=== PATIENT | female | born 1985 | race Caucasian/White ===

== ENCOUNTER 2017-11-20 09:23 | Emergency (ER) | payer SELFPAY ==
[2017-11-20] MEDS ORDERED: NA CHLORIDE 0.9% 1,000 ML ONE ×2 (09:31→15:24)
[2017-11-20] MEDS ORDERED: ACT CHARCOAL/SORB 50 GM/240ML ONE (09:31)
[2017-11-20 10:05] LABS: Protime INR 1.01
[2017-11-20 10:10] LABS: Absolute Lymphocytes (CBC) 3.1 K/uL (0.7-4.9); Absolute Monocytes 0.7 K/uL (0.1-1.3); Absolute Neutrophil 2.9 K/uL (1.8-8.0); Basophils % 0.7 % (0-1.3); Eosinophils % 2.3 % (0-4.4); Hematocrit 37.9 % (36.0-45.0); Lymphocytes % 44.9 % (15.3-44.8); MCH 29.8 pg (27.0-35.0); MCV 86.7 fL (80-100); MPV 8.8 fL (7.6-11.3); Monocytes % 10.4 % (3.3-12.3); RBC Red Blood Cell Count 4.37 M/uL (3.86-4.86)
[2017-11-20 10:31] LABS: ALT/SGPT 13 U/L (12-78); AST/SGOT 10 U/L (15-37); Albumin 4.3 g/dL (3.4-5.0); Alkaline Phosphatase 44 U/L (45-117); BUN Blood Urea Nitrogen 16 mg/dL (7-18); Bicarbonate 22 mmol/L (21-32); Bilirubin Direct 0.2 mg/dL (0-0.2); Bilirubin Total 0.6 mg/dL (0.2-1.0); Glucose Level 132 mg/dL (74-106); Potassium 3.2 mmol/L (3.5-5.1); Sodium Level 142 mmol/L (136-145)
[2017-11-20 10:39] LABS: Alcohol Serum/Plasma 13 mg/dL (0-3)
--- NOTE | 2017-11-20 10:50 | EKG ---
Test Date: 2017-11-20 Test Time: 09:33:19 Soldering Inspector: FAUZIA MEASUREMENT RESULTS: Intervals: Rate: 52 MI: 134 QRSD: 86 QT: 464 QTc: 431 [place]: P: 74 MI: 134 QRS: 78 T: 66 INTERPRETIVE STATEMENTS: Sinus bradycardia Otherwise normal ECG Compared to ECG 11/26/2016 10:34:26 Sinus rhythm no longer present Electronically Signed On 11-20-17 10:49:16 CDT by Miguelito Jauregui
[2017-11-20 14:07] LABS: Barbiturates NEGATIVE (NEGATIVE); Benzodiazepines POSITIVE (NEGATIVE); Cocaine NEGATIVE (NEGATIVE); METHAMPHETAM POSITIVE (NEGATIVE); Methadone NEGATIVE (NEGATIVE); Opiates NEGATIVE (NEGATIVE); Phencyclidine NEGATIVE (NEGATIVE); THC Cannibis POSITIVE (NEGATIVE)
[2017-11-20 14:53] LABS: Urine Blood TRACE (NEG); Urine Glucose NEGATIVE (NEG); Urine Protein 1+ (NEG); Urine Specific Gravity >1.030 (1.005-1.030); Urine pH 5.5 (5.0-7.0)
[2017-11-20] MEDS ORDERED: POTASSIUM CL SA 10 MEQ TAB PO ONE (15:23)
[2017-11-20] MEDS ORDERED: KCL 20 MEQ/100 mL IVPB 20 MEQ/100 ML BAG IV ONE (15:23)
--- NOTE | 2017-11-20 18:42 | ER ---
Nurse's Notes [facility] Name: Arianna Martinez Age: 32 yrs Sex: Female : 1985 Arrival Date: 11/20/2017 Time: 09:25 Bed 4 Private MD: Diagnosis: Suicidal ideations Presentation: 11/20 09:26 Presenting complaint: EMS states: Pt reportedly ingested 22 tablets, of 75 mg Effexor ph in attempt to harm herself, today at 0830. Pt is awake and alert on arrival to ER, following commands. C/O being cold. Pt is wet from sitting in the rain this morning. 09:29 Acuity: DAVIDE 1 ph 09:32 Transition of care: patient was not received from another setting of care. Onset of ph symptoms was November 20, 2017. Risk Assessment: Do you want to hurt yourself or someone else? Patient reports desire/thoughts of hurting themselves or someone else. Provider notified. Initial Sepsis Screen: Does the patient meet any 2 criteria? No. Patient's initial sepsis screen is negative. Does the patient have a suspected source of infection? No. Patient's initial sepsis screen is negative. Care prior to arrival: Medication(s) given: zofran 4 mg, IV initiated. 18 GA, in the left antecubital area. 09:32 Method Of Arrival: EMS: [facility] ph Historical: - Allergies: 09:35 No Known Allergies; ph - PMHx: 09:35 Hypertension; Kidney stones; ph - PSHx: 09:35 ; ph - Immunization history:: Adult Immunizations unknown. - Social history:: Smoking status: Patient uses tobacco products, smokes one-half pack cigarettes per day. - Family history:: not pertinent. - Ebola Screening: : No symptoms or risks identified at this time. - Hospitalizations: : No recent hospitalization is reported. Screenin:31 Abuse screen: Denies threats or abuse. Denies injuries from another. Nutritional ph screening: No deficits noted. Tuberculosis screening: No symptoms or risk factors identified. Fall Risk No fall in past 12 months (0 pts). No secondary diagnosis (0 pts). IV access (20 points). Ambulatory Aid- None/Bed Rest/Nurse Assist (0 pts). Gait- Weak (10 pts.). Mental Status- Oriented to own ability (0 pts). Total Toribio Fall Scale indicates Low Risk Score (25-44 pts). Fall prevention measures have been instituted. Side Rails Up X 2 Placed close to Nursing Station Frequent Obs/Assesments occuring As available Patient and Family Educated on Fall Prevention Program and strategies. Assessment: 09:40 General: Appears in no apparent distress. uncomfortable, slender, Behavior is calm, ph cooperative, quiet. Pain: Denies pain. Neuro: Level of Consciousness is awake, alert, obeys commands, Oriented to person, place, time, situation. Cardiovascular: Capillary refill < 3 seconds Rhythm is sinus bradycardia. 09:48 Respiratory: Airway is patent Respiratory effort is even, unlabored, Respiratory ph pattern is regular, symmetrical. GI: Abdomen is flat, non-distended, Bowel sounds present X 4 quads. Patient currently denies nausea, vomiting. Derm: Skin is intact, Skin is clammy, Skin is pale, Skin temperature is cool. Musculoskeletal: Circulation, motion, and sensation intact. Range of motion: intact in all extremities. 10:33 Reassessment: Patient appears in no apparent distress at this time. Patient and/or ph family updated on plan of care and expected duration. Pain level reassessed. Patient is alert, oriented x 3, equal unlabored respirations, skin warm/dry/pink. Pt resting quietly in bed with blankets pulled up over face, VSS, will continue to monitor. 12:00 Reassessment: Patient appears in no apparent distress at this time. No changes from ph previously documented assessment. Patient and/or family updated on plan of care and expected duration. Pain level reassessed. Patient is alert, oriented x 3, equal unlabored respirations, skin warm/dry/pink. 12:55 Reassessment: Patient appears in no apparent distress at this time. Patient and/or ph family updated on plan of care and expected duration. Pain level reassessed. Patient is alert, oriented x 3, equal unlabored respirations, skin warm/dry/pink. Pt appears to be sleeping, opens eyes to verbal stimuli, VSS, will continue to monitor. 13:25 Reassessment: Spoke with Daisy from [place] poison control and if Effexor was XR sv then we would need to obs for 9 hours and watch for prolonged symptoms. Case # [id number]. 14:28 Reassessment: Patient appears in no apparent distress at this time. No changes from previously documented assessment. Patient and/or family updated on plan of care and expected duration. Pain level reassessed. 15:50 Reassessment: Patient appears in no apparent distress at this time. Patient and/or ph family updated on plan of care and expected duration. Pain level reassessed. Patient is alert, oriented x 3, equal unlabored respirations, skin warm/dry/pink. Pt resting quietly, denies pain or nausea at this time, awaiting evaluation by [facility]. 16:40 Reassessment: Patient appears in no apparent distress at this time. Patient and/or ph family updated on plan of care and expected duration. Pain level reassessed. Patient is alert, oriented x 3, equal unlabored respirations, skin warm/dry/pink. [facility] litigation claim representative at bedside to speak w/ pt. 17:20 Reassessment: Patient appears in no apparent distress at this time. Patient and/or ph family updated on plan of care and expected duration. Pain level reassessed. Patient is alert, oriented x 3, equal unlabored respirations, skin warm/dry/pink. Pt resting quietly, speaking w/ visitor. 18:37 Reassessment: Patient appears in no apparent distress at this time. No changes from previously documented assessment. Patient and/or family updated on plan of care and expected duration. Pain level reassessed. Patient is alert, oriented x 3, equal unlabored respirations, skin warm/dry/pink. Awaiting placement at psychiatric facility. 19:36 Reassessment: pt is agitated states she wants to go home she feels she is capable of ss handling things on her own her spouse is at bedside and agrees with pt. Dr Mike at bedside for discussion of plan of care pt to be reevaluated by [facility] litigation claim representative. 20:30 Reassessment: Patient agitated with [facility] at bedside, states wanting to lp1 leave. 21:26 Reassessment: Patient appears in no apparent distress at this time. Patient and/or lp1 family updated on plan of care and expected duration. Pain level reassessed. Reassessment: Patient is alert, oriented x 3, equal unlabored respirations, skin warm/dry/pink. General: Behavior is calm, cooperative. 21:53 Reassessment: [facility] member at bedside to re-evaluate patient. lp1 23:06 Reassessment: Patient appears in no apparent distress at this time. Patient is alert, lp1 oriented x 3, equal unlabored respirations, skin warm/dry/pink. Patient states feeling better. Psych: 09:49 Subjective: Patient's mood is hopeless, Delusions are denied, Hallucinations are denied ph Having thoughts of suicide. Objective: Patient is cooperative, using poor eye contact, restless, Speech is absent, Affect is blunted. Interventions: Removed personal items and placed in bag. Patient placed in hospital gown. Searched person for dangerous items. Suicide Risk Assessment: Sad Person Scale: Sex of patient: Female: Score 0 points. Age of patient: Score 1 point if patient 15-34. Depression: Score 1 point if signs of depression are present. Previous Attempt: Score 1 point if patient has previously attempted suicide. Substance Abuse: Score 0 point if patient does not abuse alcohol or drugs. Rational Thinking: Score 0 point if patient has rational thinking. Social Support: Score 0 if social support is present/available. Organized Plan: Score 1 point if patient had a plan in place. Relationship: Score 1 point if patient is , , , or for a single male Chronic Sickness: Score 0 point if patient does not have a chronic illness, debilitating, or severe disorder. TOTAL POINTS: If total points are 5-6, proposed clinical action is to strongly consider hospitalization, depending upon confidence in the follow-up arrangement. Implement suicide precautions. Safety Checks: Personal items have been removed. Door is open. No visitors are present at this time. Pt denies substance abuse. 23:04 Commitment: Patient and agree to go to appointment that was made with new lp1 psychiatrist. Vital Signs: 09:30 BP 145 / 115; Pulse 53; Resp 16; Temp 97.1; Pulse Ox 98% on R/A; Weight 56.7 kg; Height ph 5 ft. 6 in. (167.64 cm); 10:24 BP 149 / 86; Pulse 72; Resp 16; Pulse Ox 100% ; sv 11:29 BP 115 / 72; Pulse 77; Resp 16; Pulse Ox 99% on R/A; mt 12:04 BP 123 / 89; Pulse 63; Resp 14; Pulse Ox 98% on R/A; mt 13:03 BP 128 / 91; Pulse 69; Resp 18; Pulse Ox 98% on R/A; dh3 14:12 BP 134 / 99; Pulse 69; Resp 14; Pulse Ox 100% on R/A; mt 15:13 BP 126 / 85; Pulse 62; Resp 13; Pulse Ox 97% on R/A; mt 15:53 BP 139 / 99; Pulse 60; Resp 13; Pulse Ox 99% on R/A; mt 17:21 BP 126 / 88; Pulse 90; Resp 16; Pulse Ox 99% on R/A; ph 18:39 BP 153 / 94; Pulse 67; Resp 18; Pulse Ox 99% on R/A; ph 21:26 BP 129 / 83; Pulse 72; Resp 16; Pulse Ox 100% on R/A; lp1 22:45 BP 129 / 90; Pulse 68; Resp 18; Temp 98.0; Pulse Ox 100% ; ms 09:30 Body Mass Index 20.18 (56.70 kg, 167.64 cm) ph ED Course: 09:25 Patient arrived in ED. rn 09:25 Yousuf Shultz MD is Attending Physician. rn 09:28 Hannah Thomas RN is Primary Nurse. ph 09:29 Triage completed. ph 09:30 Safety Checks: Personal items have been removed. The door is open or patient has been ph placed in a hallway bed/chair. There are no family/friend visitors at this time Sitter present at this time. 09:31 Arm band placed on. ph 09:45 Safety Checks: Personal items have been removed. The door is open or patient has been ph placed in a hallway bed/chair. There are no family/friend visitors at this time Sitter present at this time. 09:47 Initial lab(s) drawn, by me, sent to lab. 3 09:51 Patient has correct armband on for positive identification. Placed in gown. Bed in low ph position. Call light in reach. Side rails up X2. vehicle return associate on. Pulse ox on. NIBP on. Warm blanket given. Pillow given. 10:00 Safety Checks: Personal items have been removed. The door is open or patient has been ph placed in a hallway bed/chair. There are no family/friend visitors at this time Sitter present at this time. 10:15 Safety Checks: Personal items have been removed. The door is open or patient has been ph placed in a hallway bed/chair. There are no family/friend visitors at this time Sitter present at this time. 10:17 EKG done, by automotive glass technician. reviewed by Yousuf Shultz MD. at1 10:30 Safety Checks: Personal items have been removed. The door is open or patient has been ph placed in a hallway bed/chair. There are no family/friend visitors at this time Sitter present at this time. 10:45 Safety Checks: Personal items have been removed. The door is open or patient has been ph placed in a hallway bed/chair. There are no family/friend visitors at this time Sitter present at this time. 10:45 Safety checks: Items removed: yes. Door open/sign placed on door: yes. Family/friend mt present: no. 11:00 Safety Checks: Personal items have been removed. The door is open or patient has been ph placed in a hallway bed/chair. There are no family/friend visitors at this time Sitter present at this time. 11:00 Safety checks: Items removed: yes. Door open/sign placed on door: yes. Family/friend mt present: no. 11:15 Safety Checks: Personal items have been removed. The door is open or patient has been ph placed in a hallway bed/chair. There are no family/friend visitors at this time Sitter present at this time. 11:15 Safety checks: Items removed: yes. Door open/sign placed on door: yes. Family/friend mt present: no. 11:30 Safety Checks: Personal items have been removed. The door is open or patient has been ph placed in a hallway bed/chair. There are no family/friend visitors at this time Sitter present at this time. 11:30 Safety checks: Items removed: yes. Door open/sign placed on door: yes. Family/friend mt present: no. 11:45 Safety Checks: Personal items have been removed. The door is open or patient has been ph placed in a hallway bed/chair. There are no family/friend visitors at this time Sitter present at this time. 11:45 Safety checks: Items removed: yes. Door open/sign placed on door: yes. Family/friend mt present: no. 12:00 Safety Checks: Personal items have been removed. The door is open or patient has been ph placed in a hallway bed/chair. There are no family/friend visitors at this time Sitter present at this time. 12:00 Safety checks: Items removed: yes. Door open/sign placed on door: yes. Family/friend mt present: no. 12:15 Safety Checks: Personal items have been removed. The door is open or patient has been ph placed in a hallway bed/chair. There are no family/friend visitors at this time Sitter present at this time. 12:15 Safety checks: Items removed: yes. Door open/sign placed on door: yes. Family/friend mt present: no. 12:30 Safety Checks: Personal items have been removed. The door is open or patient has been ph placed in a hallway bed/chair. There are no family/friend visitors at this time Sitter present at this time. 12:30 Safety checks: Items removed: yes. Door open/sign placed on door: yes. Family/friend mt present: no. 12:45 Safety Checks: Personal items have been removed. The door is open or patient has been ph placed in a hallway bed/chair. There are no family/friend visitors at this time Sitter present at this time. 12:45 Safety checks: Items removed: yes. Door open/sign placed on door: yes. Family/friend mt present: no. 13:00 Safety Checks: Personal items have been removed. The door is open or patient has been ph placed in a hallway bed/chair. There are no family/friend visitors at this time Sitter present at this time. 13:00 Safety checks: Items removed: yes. Door open/sign placed on door: yes. Family/friend mt present: no. 13:15 Safety Checks: Personal items have been removed. The door is open or patient has been ph placed in a hallway bed/chair. There are no family/friend visitors at this time Sitter present at this time. 13:15 Safety checks: Items removed: yes. Door open/sign placed on door: yes. Family/friend mt present: yes. 13:30 Safety Checks: Personal items have been removed. The door is open or patient has been ph placed in a hallway bed/chair. A family member and/or friend is present and encouraged to stay. Sitter present at this time. 13:30 Safety checks: Items removed: yes. Door open/sign placed on door: yes. Family/friend mt present: yes. 13:43 Urine Drug Screen Sent. 13:45 Safety Checks: Personal items have been removed. The door is open or patient has been ph placed in a hallway bed/chair. A family member and/or friend is present and encouraged to stay. Sitter present at this time. 13:45 Safety checks: Items removed: yes. Door open/sign placed on door: yes. Family/friend dh3 present: yes. Family/friends encouraged to stay with patient. 14:00 Safety Checks: Personal items have been removed. The door is open or patient has been ph placed in a hallway bed/chair. A family member and/or friend is present and encouraged to stay. Sitter present at this time. 14:00 Safety checks: Items removed: yes. Door open/sign placed on door: yes. Family/friend mt present: yes. 14:15 Safety Checks: Personal items have been removed. The door is open or patient has been ph placed in a hallway bed/chair. There are no family/friend visitors at this time Sitter present at this time. 14:15 Safety checks: Items removed: yes. Door open/sign placed on door: yes. Family/friend mt present: yes. 14:29 No provider procedures requiring assistance completed. ph 14:30 Safety Checks: Personal items have been removed. The door is open or patient has been ph placed in a hallway bed/chair. There are no family/friend visitors at this time Sitter present at this time. 14:30 Safety checks: Items removed: yes. Door open/sign placed on door: yes. Family/friend dh3 present: no. 14:45 Safety Checks: Personal items have been removed. The door is open or patient has been ph placed in a hallway bed/chair. There are no family/friend visitors at this time Sitter present at this time. 14:45 Safety checks: Items removed: yes. Door open/sign placed on door: yes. Family/friend dh3 present: no. 15:00 Safety Checks: Personal items have been removed. The door is open or patient has been ph placed in a hallway bed/chair. There are no family/friend visitors at this time Sitter present at this time. 15:00 Safety checks: Items removed: yes. Door open/sign placed on door: yes. Family/friend mt present: no. 15:10 Called [facility] to inform about the patient. ag 15:15 Safety Checks: Personal items have been removed. The door is open or patient has been ph placed in a hallway bed/chair. There are no family/friend visitors at this time Sitter present at this time. 15:15 Safety checks: Items removed: yes. Door open/sign placed on door: yes. Family/friend mt present: no. 15:30 Safety Checks: Personal items have been removed. The door is open or patient has been ph placed in a hallway bed/chair. There are no family/friend visitors at this time Sitter present at this time. 15:30 Safety checks: Items removed: yes. Door open/sign placed on door: yes. Family/friend mt present: no. 15:45 Safety Checks: Personal items have been removed. The door is open or patient has been ph placed in a hallway bed/chair. There are no family/friend visitors at this time Sitter present at this time. 15:45 Safety checks: Items removed: yes. Door open/sign placed on door: yes. Family/friend mt present: no. 16:00 Safety Checks: Personal items have been removed. The door is open or patient has been ph placed in a hallway bed/chair. There are no family/friend visitors at this time Sitter present at this time. 16:03 Shakira from [facility] called and said she would be coming from [place] within the ag nex 20 minutes to see the patient. 16:15 Safety Checks: Personal items have been removed. The door is open or patient has been ph placed in a hallway bed/chair. There are no family/friend visitors at this time Sitter present at this time. 16:15 Safety checks: Items removed: yes. Door open/sign placed on door: yes. Family/friend dh3 present: no. 16:30 Safety Checks: Personal items have been removed. The door is open or patient has been ph placed in a hallway bed/chair. There are no family/friend visitors at this time Sitter present at this time. 16:30 Safety checks: Items removed: yes. Door open/sign placed on door: yes. Family/friend dh3 present: yes. Family/friends encouraged to stay with patient. 16:45 Safety Checks: Personal items have been removed. The door is open or patient has been ph placed in a hallway bed/chair. There are no family/friend visitors at this time Sitter present at this time. 16:45 Safety checks: Items removed: yes. Door open/sign placed on door: yes. Family/friend dh3 present: yes. Family/friends encouraged to stay with patient. 16:53 All labs and clinicals were sent to all [facility] facilities. 17:00 Safety Checks: Personal items have been removed. The door is open or patient has been ph placed in a hallway bed/chair. There are no family/friend visitors at this time Sitter present at this time. 17:00 Safety checks: Items removed: yes. Door open/sign placed on door: yes. Family/friend dh3 present: yes. Family/friends encouraged to stay with patient. 17:15 Safety Checks: Personal items have been removed. The door is open or patient has been ph placed in a hallway bed/chair. A family member and/or friend is present and encouraged to stay. Sitter present at this time. 17:15 Safety checks: Items removed: yes. Door open/sign placed on door: yes. Family/friend dh3 present: yes. Family/friends encouraged to stay with patient. 17:30 Safety Checks: Personal items have been removed. The door is open or patient has been ph placed in a hallway bed/chair. A family member and/or friend is present and encouraged to stay. Sitter present at this time. 17:30 Safety checks: Items removed: yes. Door open/sign placed on door: yes. Family/friend dh3 present: yes. Family/friends encouraged to stay with patient. Safety checks:. 17:45 Safety Checks: Personal items have been removed. The door is open or patient has been ph placed in a hallway bed/chair. A family member and/or friend is present and encouraged to stay. Sitter present at this time. 17:45 Safety checks: Items removed: yes. Door open/sign placed on door: yes. Family/friend dh3 present: yes. Family/friends encouraged to stay with patient. 18:00 Safety Checks: Personal items have been removed. The door is open or patient has been ph placed in a hallway bed/chair. A family member and/or friend is present and encouraged to stay. Sitter present at this time. 18:00 Safety checks: Items removed: yes. Door open/sign placed on door: yes. Family/friend dh3 present: yes. Family/friends encouraged to stay with patient. 18:15 Safety Checks: Personal items have been removed. The door is open or patient has been ph placed in a hallway bed/chair. A family member and/or friend is present and encouraged to stay. Sitter present at this time. 18:15 Safety checks: Items removed: yes. Door open/sign placed on door: yes. Family/friend dh3 present: yes. Family/friends encouraged to stay with patient. 18:17 Aruna from [facility] called to notified they have no beds available at this time. ag 18:30 Safety Checks: Personal items have been removed. The door is open or patient has been ph placed in a hallway bed/chair. A family member and/or friend is present and encouraged to stay. Sitter present at this time. 18:30 Safety checks: Items removed: yes. Door open/sign placed on door: yes. Family/friend dh3 present: yes. Family/friends encouraged to stay with patient. 18:39 Suyapa from [facility] call to informed us they have no female beds ag available at this time. 18:44 Zita at [facility] called to inform us they have no available beds. ag 18:45 Safety Checks: Personal items have been removed. The door is open or patient has been ph placed in a hallway bed/chair. A family member and/or friend is present and encouraged to stay. Sitter present at this time. 18:45 Safety checks: Items removed: yes. Door open/sign placed on door: yes. Family/friend dh3 present: yes. Family/friends encouraged to stay with patient. 18:46 Mental health deputy was called about the patient. He is out on a call and he will call ag us back. 18:47 Repeat lab(s) drawn. by me, sent to lab. 3 19:00 Safety Checks: Personal items have been removed. The door is open or patient has been ph placed in a hallway bed/chair. A family member and/or friend is present and encouraged to stay. Sitter present at this time. 19:00 Safety checks: Items removed: yes. Door open/sign placed on door: yes. Family/friend ms present: yes. Family/friends encouraged to stay with patient. pt belongings picked up and give to security. shirt, shorts and a phone. 19:15 Safety checks: Items removed: yes. Door open/sign placed on door: yes. Family/friend ms present: yes. 19:30 Safety checks: Items removed: yes. Door open/sign placed on door: yes. Family/friend ms present: yes. 19:45 Safety checks: Items removed: yes. Door open/sign placed on door: yes. Family/friend ms present: yes. 20:00 Safety checks: Items removed: yes. Door open/sign placed on door: yes. Family/friend ms present: yes. 20:15 Safety checks: Items removed: yes. Door open/sign placed on door: yes. Family/friend ms present: yes. 20:30 Safety checks: Items removed: yes. Door open/sign placed on door: yes. Family/friend ms present: yes. 20:40 mental health deputy issued warrant. ms 20:45 Safety checks: Items removed: yes. Door open/sign placed on door: yes. Family/friend ms present: yes. 20:55 offered to get pt a sandwich, pt declined.. ms 21:00 Safety checks: Items removed: yes. Door open/sign placed on door: yes. Family/friend ms present: yes. 21:15 Safety checks: Items removed: yes. Door open/sign placed on door: yes. Family/friend ms present: yes. 21:30 Safety checks: Items removed: yes. Door open/sign placed on door: yes. Family/friend ms present: no. 21:45 Safety checks: Items removed: yes. Door open/sign placed on door: yes. Family/friend ms present: Other: [facility] [id number] worker in room with pt. 22:00 Safety checks: Items removed: yes. Door open/sign placed on door: yes. Family/friend ms present: Other: [employer] worker in room with pt. 22:07 Primary Nurse role handed off by Hannah Thomas RN rg2 22:15 Safety checks: Items removed: yes. Door open/sign placed on door: yes. Family/friend ms present: yes. 22:30 Safety checks: Items removed: yes. Door open/sign placed on door: yes. Family/friend ms present: yes. 22:45 Safety checks: Items removed: yes. Door open/sign placed on door: yes. Family/friend ms present: yes. 22:57 pt belongings of a shirt sorts and an Iphone handed back to pt. ms 23:03 Francesca Colin, RN is Primary Nurse. lp1 23:05 IV discontinued, No redness/swelling at site. Pressure dressing applied. lp1 Administered Medications: 09:35 Drug: Charcoal Suspension 50 grams Route: PO; ph 19:11 Follow up: Response: No adverse reaction ph 09:36 Drug: NS 0.9% 1000 ml Route: IV; Rate: 1000 ml; Site: left antecubital; ph 19:11 Follow up: Response: No adverse reaction; IV Status: Completed infusion ph 15:49 Drug: Potassium Chloride 40 mEq Route: PO; ph 19:11 Follow up: Response: No adverse reaction ph 15:49 Drug: Potassium Chloride 10 mEq Route: IV; Rate: calculated rate; Site: left ph antecubital; 19:10 Follow up: Response: No adverse reaction; IV Status: Completed infusion ph Outcome: 18:41 ER care complete, transfer ordered by MD. rn 22:46 Discharge ordered by . 23:05 Discharged to home ambulatory, with significant other. lp1 23:05 Condition: good 23:05 Discharge instructions given to patient, Instructed on discharge instructions, follow up and referral plans. Demonstrated understanding of instructions, follow-up care. 23:06 Patient left the ED. lp1 Signatures: Nobrert Rodriguez rg2 Anahy Hummel RN RN sv Solis, Maria ms Nieto, Roman, MD MD rn Smirch, Shelby, RN RN ss Pena, Laura, RN RN lp1 Martha sauer, social service worker EKG Tat1 Addie Simms Patricia, RN RN Shavon Muñiz mt, [facility] Kai Mike MD MD Corrections: (The following items were deleted from the chart) 09:49 09:40 Cardiovascular: Capillary refill ph ph 09:51 09:32 Presenting complaint: ph ss 14:21 14:00 Safety checks: Items removed: yes. Door open/sign placed on door: yes. mt Family/friend present: yes. mt 15:03 09:26 Presenting complaint: EMS states: Pt reportedly ingested 22 tablets, of 75 mg ph Effexor in attempt to harm herself. Pt is awake and alert on arrival to ER, following commands. C/O being cold. Pt is wet from sitting in the rain this morning. ss 17:35 17:00 Safety checks: Items removed: yes. Door open/sign placed on door: yes. dh3 Family/friend present: yes. dh3 17:36 17:15 Safety checks: Items removed: yes. Door open/sign placed on door: yes. dh3 Family/friend present: yes. dh3 20:09 18:58 Safety checks: Items removed: yes. Door open/sign placed on door: yes. ms Family/friend present: yes. Family/friends encouraged to stay with patient. ms 20: 19:37 Safety checks: Items removed: yes. Door open/sign placed on door: yes. ms Family/friend present: yes. ms 20: 19:37 pt belongings picked up and give to security. shirt, shorts and a phone ms ms 20:47 20:46 Safety checks: Items removed: yes. Door open/sign placed on door: yes. ms Family/friend present: yes. ms 20:49 20:30 Safety checks: Items removed: yes. Door open/sign placed on door: yes. ms Family/friend present: yes. ms
--- NOTE | 2017-11-20 18:42 | EDPHYS ---
Physician Documentation [facility] Name: Arianna Martinez Age: 32 yrs Sex: Female : 1985 Arrival Date: 11/20/2017 Time: 09:25 Bed 4 Private MD: ED Physician Yousuf Shultz HPI: 11/20 09:26 This 32 yrs old Female presents to ER via Unassigned with complaints of rn overdose. 09:26 The patient presents to the emergency department with a possible overdose. Severity of rn symptoms: At their worst the symptoms were mild in the emergency department the symptoms are unchanged. The patient has not recently seen a physician. + depression and suicidal thoughts, no clear trigger, took 22 pills out of boyfriends bottle of effexor, standard, not XR, approx 1 hour ago. Bottle found and identified, + previous attempt. + nausea/vomiting/chills. Given zofran by EMS. Called by poison control, who recommended ER observation after charcoal. . Historical: - Allergies: 09:35 No Known Allergies; ph - PMHx: 09:35 Hypertension; Kidney stones; ph - PSHx: 09:35 ; ph - Immunization history:: Adult Immunizations unknown. - Social history:: Smoking status: Patient uses tobacco products, smokes one-half pack cigarettes per day. - Family history:: not pertinent. - Ebola Screening: : No symptoms or risks identified at this time. - Hospitalizations: : No recent hospitalization is reported. ROS: 09:26 Constitutional: Negative for fever, and weight loss, Eyes: Negative for injury, pain, rn redness, and discharge, Neck: Negative for injury, pain, and swelling, Cardiovascular: Negative for chest pain, palpitations, and edema, Respiratory: Negative for shortness of breath, cough, wheezing, and pleuritic chest pain, Abdomen/GI: Negative for abdominal pain, diarrhea, and constipation, MS/Extremity: Negative for injury and deformity, Skin: Negative for injury, rash, and discoloration, Neuro: Negative for headache, weakness, numbness, tingling, and seizure, Psych: Negative for homicidal ideation, and hallucinations. Exam: 09:26 Constitutional: This is a well developed, well nourished patient who is awake, alert, rn and in no acute distress. Head/Face: Normocephalic, atraumatic. Eyes: Pupils equal round and reactive to light, extra-ocular motions intact. Lids and lashes normal. Conjunctiva and sclera are non-icteric and not injected. Cornea within normal limits. Periorbital areas with no swelling, redness, or edema. Cardiovascular: bradycardic, regular Respiratory: Lungs have equal breath sounds bilaterally, clear to auscultation and percussion. No rales, rhonchi or wheezes noted. No increased work of breathing, no retractions or nasal flaring. Abdomen/GI: Soft, non-tender, with normal bowel sounds. No distension or tympany. No guarding or rebound. No evidence of tenderness throughout. MS/ Extremity: Pulses equal, no cyanosis. Neurovascular intact. Full, normal range of motion. Equal circumference. Neuro: Awake and alert, GCS 15, oriented to person, place, time, and situation. Cranial nerves II-XII grossly intact. Motor strength 5/5 in all extremities. Sensory grossly intact Vital Signs: 09:30 BP 145 / 115; Pulse 53; Resp 16; Temp 97.1; Pulse Ox 98% on R/A; Weight 56.7 kg; Height ph 5 ft. 6 in. (167.64 cm); 10:24 BP 149 / 86; Pulse 72; Resp 16; Pulse Ox 100% ; sv 11:29 BP 115 / 72; Pulse 77; Resp 16; Pulse Ox 99% on R/A; mt 12:04 BP 123 / 89; Pulse 63; Resp 14; Pulse Ox 98% on R/A; mt 13:03 BP 128 / 91; Pulse 69; Resp 18; Pulse Ox 98% on R/A; dh3 14:12 BP 134 / 99; Pulse 69; Resp 14; Pulse Ox 100% on R/A; mt 15:13 BP 126 / 85; Pulse 62; Resp 13; Pulse Ox 97% on R/A; mt 15:53 BP 139 / 99; Pulse 60; Resp 13; Pulse Ox 99% on R/A; mt 17:21 BP 126 / 88; Pulse 90; Resp 16; Pulse Ox 99% on R/A; ph 18:39 BP 153 / 94; Pulse 67; Resp 18; Pulse Ox 99% on R/A; ph 21:26 BP 129 / 83; Pulse 72; Resp 16; Pulse Ox 100% on R/A; lp1 22:45 BP 129 / 90; Pulse 68; Resp 18; Temp 98.0; Pulse Ox 100% ; ms 09:30 Body Mass Index 20.18 (56.70 kg, 167.64 cm) ph MDM: 09:26 Patient medically screened. rn 09:44 ED course: Pt took half of charcoal dose, trying to get rest down.. rn 13:25 ED course: Pt improved, asymptomatic, ambulatory without assistance to bathroom, rn sleeping comfortably. 18:38 Differential diagnosis: over medication. 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 Counseling: I had a detailed discussion with the patient and/or guardian regarding: the historical points, exam findings, and any diagnostic results supporting the discharge/admit diagnosis, the need to transfer to another facility, [facility] does not immediately have the required specialist. ED course: Pt with suicide attempt, evaluated by mental health, also recommended transfer, will get residential order based on attempt, no change in situation, and previous attempt. Medically cleared for transfer.. 22:42 ED course: pt seen and examined, states no longer suicidal. has problem with coping gs with problems, sought immediate assistance after ingestion, family and pt state has support and appt with private psychiatrist. has been reevaluated by [facility], agree with OP therapy. will discharge home. 11/20 09:26 Order name: Acetaminophen; Complete Time: 11:10 11/20 09:26 Order name: Basic Metabolic Panel; Complete Time: 11:10 11/20 09:26 Order name: CBC with Diff; Complete Time: 10:11/20 09:26 Order name: ETOH Level; Complete Time: 11:10 11/20 09:26 Order name: Hepatic Function; Complete Time: 11:10 11/20 09:26 Order name: PT-INR; Complete Time: 10:11/20 09:26 Order name: Ptt, Activated; Complete Time: 10:25 11/20 09:26 Order name: Salicylate; Complete Time: 10:25 11/20 09:26 Order name: Urine Drug Screen; Complete Time: 15:08 11/20 14:07 Order name: Urine Dipstick--Ancillary (enter results); Complete Time: 15:08 [facility] 11/20 14:07 Order name: Urine --Ancillary (enter results); Complete Time: 15:08 [facility] 11/20 18:39 Order name: Potassium; Complete Time: 22:42 11/20 09:26 Order name: Urine Test (obtain specimen); Complete Time: 13:38 11/20 09:26 Order name: EKG; Complete Time: 09:26 11/20 09:26 Order name: EKG - Nurse/Tech; Complete Time: 09:48 11/20 09:26 Order name: IV Saline Lock; Complete Time: 09:29 11/20 09:26 Order name: Labs collected and sent; Complete Time: 09:48 11/20 09:26 Order name: Urine Dipstick-Ancillary (obtain specimen); Complete Time: 13:43 11/20 15:09 Order name: Diet Regular; Complete Time: 15:09 ss Administered Medications: 09:35 Drug: Charcoal Suspension 50 grams Route: PO; ph 19:11 Follow up: Response: No adverse reaction ph 09:36 Drug: NS 0.9% 1000 ml Route: IV; Rate: 1000 ml; Site: left antecubital; ph 19:11 Follow up: Response: No adverse reaction; IV Status: Completed infusion ph 15:49 Drug: Potassium Chloride 40 mEq Route: PO; ph 19:11 Follow up: Response: No adverse reaction ph 15:49 Drug: Potassium Chloride 10 mEq Route: IV; Rate: calculated rate; Site: left ph antecubital; 19:10 Follow up: Response: No adverse reaction; IV Status: Completed infusion ph Disposition: 11/20/17 22:46 Discharged to Home. Impression: Suicidal ideations. - Condition is Stable. - Discharge Instructions: Depression, Adult. - Medication Reconciliation Form, Thank You Letter, Antibiotic Education, Prescription Opioid Use form. - Follow up: Private Physician; When: 2 - 3 days; Reason: Re-evaluation by your physician. Signatures: Dispatcher [employer] EDYousuf Austin MD MD rn Pena, Laura, RN RN lp1 Hannah Thomas RN RN ph Mike, MD ELÍAS Quinn gs Corrections: (The following items were deleted from the chart) 22:45 18:41 11/20/2017 18:41 Transfer ordered to Psych Facility. Diagnosis is Suicide gs attempt; Intentional overdose of anti-depressant. Reason for transfer: Higher level of care. Accepting physician is . Condition is Stable. Problem is new. Symptoms are unchanged. rn 23:06 22:46 11/20/2017 22:46 Discharged to Home. Impression: Suicidal ideations. Condition is lp1 Stable. Forms are Medication Reconciliation Form, Thank You Letter, Antibiotic Education, Prescription Opioid Use. Follow up: Private Physician; When: 2 - 3 days; Reason: Re-evaluation by your physician. gs
== END 2017-11-20 23:06 | disposition home or self-care (01) ==
LOC: ER 09:23
DX: T43.212A Poisoning by selective serotonin and norepinephrine reuptake inhibitors, intentional self-harm, initial encounter (principal); I10 Essential (primary) hypertension; F17.210 Nicotine dependence, cigarettes, uncomplicated
CPT/HCPCS: 36415; 80048; 80076; 80307; 80320; 80329; 81003; 81025; 84132; 85025; 85610; 85730; 93005; 96361; 96365; 96366; 99291; 99292; J7030